=== PATIENT | female | born 1985 | race Caucasian/White ===

== ENCOUNTER 2017-08-13 13:22 | Emergency (ER) | payer OTHER ==
[~2017-08-13] VITALS: Ht 175.3 cm; Wt 65.0 kg
[~2017-08-13 13:22] MED LIST: HYDR-3533 PO; LEVO.1 PO
[2017-08-13 13:24] VITALS: BP 125/73; PULSE 87; RESP 16; TEMP 98.7; O2SAT 100
[2017-08-13] MEDS ORDERED: SYNT88TA PO (13:56)
--- NOTE | 2017-08-13 14:12 | PD ---
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 Says that the chest pain is located in the left midsternal breast area without radiation. Says nothing seems to make the pain better or worse. She describes it as sharp and tight, mild to moderate in severity. Says this morning she had associated shortness of breath and nausea but this has since resolved. Says she took Motrin yesterday but did not provide relief. Says yesterday the pain was constant and persisted throughout today's that he she decided to come in today for evaluation. She says that she has a history of this chest pain previously that lasted several weeks before resolving spontaneously. Says she saw a winding inspector and tester 2-3 years ago where she had an echocardiogram and stress test. There were both normal according to the patient. Says she was previously diagnosed with GERD. She does not use tobacco products. Says she drinks alcohol occasionally. Family history is positive for her mother who has LVH. Her grandfather had an PA and she has several uncles who of heart attacks in their 40s. She denies recent travel , history of cancer, IV drug use, history of DVT/PE, recent surgery. She denies fevers or chills. PFSH Past Medical History Cardiovascular Problems: Yes (heart murmur) Thyroid Disease: Yes (hypo) Influenza Vaccination: Yes ?: Not LMP: 2 WEEKS Past Surgical History Surgical History: No Previous Surgery Social History Alcohol Use: Yes (DAILY) Tobacco Use: No Substance Use: No Allergies-Medications (Allergen,Severity, Reaction): Coded Allergies: No Known Allergies (Verified Adverse Reaction, Unknown, 08/13/17) Reported Meds & Prescriptions Reported Meds & Active Scripts Active Ranitidine (Ranitidine HCl) 150 Mg Tab 150 Mg PO BID 7 Days Reported Synthroid (Levothyroxine Sodium) 88 Mcg Tab 88 Mcg PO DAILY Review of Systems Except as stated in HPI: all other systems reviewed are Neg Physical Exam Narrative GENERAL: Well-developed, well-nourished no apparent distress SKIN: Focused skin assessment warm/dry. HEAD: Atraumatic. Normocephalic. EYES: Pupils equal and round. No scleral icterus. No injection or drainage. ENT: No nasal bleeding or discharge. Mucous membranes pink and moist. NECK: Trachea midline. No JVD. No lymphadenopathy CARDIOVASCULAR: Regular rate and rhythm. No murmur appreciated. RESPIRATORY: No accessory muscle use. Clear to auscultation. Breath sounds equal bilaterally. No Tenderness to palpation of the chest wall MUSCULOSKELETAL: No obvious deformities. No clubbing. No cyanosis. No edema. [place] sign negative. [place] sign negative. No tenderness palpation of the chest wall NEUROLOGICAL: Awake and alert. No obvious cranial nerve deficits. Motor grossly within normal limits. Normal speech. PSYCHIATRIC: Appropriate mood and affect; insight and judgment normal. Data Data Last Documented VS Vital Signs Date Time Temp Pulse Resp B/P (MAP) Pulse Ox O2 Delivery O2 Flow Rate FiO2 08/13/17 15:33 96 Room Air 08/13/17 13:24 98.7 87 16 125/73 (90) Orders Orders Electrocardiogram (08/13/17 14:04) Ckmb (Isoenzyme) Profile (08/13/17 14:04) Complete Blood Count With Diff (08/13/17 14:04) Comprehensive Metabolic Panel (08/13/17 14:04) D-Dimer (08/13/17 14:04) Magnesium (Mg) (08/13/17 14:04) Prothrombin Time / Inr (Pt) (08/13/17 14:04) Act Partial Throm Time (Ptt) (08/13/17 14:04) Troponin I (08/13/17 14:04) Lipase (08/13/17 14:04) Chest, Single Ap (08/13/17 14:04) Ecg Monitoring (08/13/17 14:04) Iv Access Insert/Monitor (08/13/17 14:04) Oximetry (08/13/17 14:04) Aspirin Chew (Aspirin Chew) (08/13/17 14:15) Sodium Chloride 0.9% Flush (Ns Flush) (08/13/17 14:15) Sodium Chlor 0.9% 1000 Ml Inj (Ns 1000 M (08/13/17 14:15) Thyroid Stimulating Hormone (08/13/17 14:11) Urinalysis - C+S If Indicated (08/13/17 14:44) Ed Urine Pregnancytest Poc (08/13/17 14:44) Ed Discharge Order (08/13/17 15:50) Labs Laboratory Tests Test 08/13/17 14:22 08/13/17 15:25 White Blood Count 10.2 TH/MM3 Red Blood Count 4.68 MIL/MM3 Hemoglobin 12.8 GM/DL Hematocrit 38.4 % Mean Corpuscular Volume 82.1 FL Mean Corpuscular Hemoglobin 27.4 PG Mean Corpuscular Hemoglobin Concent 33.4 % Red Cell Distribution Width 16.3 % Platelet Count 364 TH/MM3 Mean Platelet Volume 8.7 FL Neutrophils (%) (Auto) 58.5 % Lymphocytes (%) (Auto) 27.6 % Monocytes (%) (Auto) 9.9 % Eosinophils (%) (Auto) 2.7 % Basophils (%) (Auto) 1.3 % Neutrophils # (Auto) 6.0 TH/MM3 Lymphocytes # (Auto) 2.8 TH/MM3 Monocytes # (Auto) 1.0 TH/MM3 Eosinophils # (Auto) 0.3 TH/MM3 Basophils # (Auto) 0.1 TH/MM3 CBC Comment DIFF FINAL Differential Comment Prothrombin Time 11.4 SEC Prothromb Time International Ratio 1.1 RATIO Activated Partial Thromboplast Time 27.5 SEC D-Dimer Quantitative (PE/DVT) LESS THAN 0.19 MG/L FEU Blood Urea Nitrogen 18 MG/DL Creatinine 0.87 MG/DL Random Glucose 97 MG/DL Total Protein 7.3 GM/DL Albumin 3.8 GM/DL Calcium Level 8.7 MG/DL Magnesium Level 2.2 MG/DL Alkaline Phosphatase 38 U/L Aspartate Amino Transf (AST/SGOT) 15 U/L Alanine Aminotransferase (ALT/SGPT) 16 U/L Total Bilirubin 0.3 MG/DL Sodium Level 141 MEQ/L Potassium Level 3.9 MEQ/L Chloride Level 108 MEQ/L Carbon Dioxide Level 25.2 MEQ/L Anion Gap 8 MEQ/L Estimat Glomerular Filtration Rate 76 ML/MIN Total Creatine Kinase 74 U/L Troponin I LESS THAN 0.02 NG/ML Lipase 116 U/L Thyroid Stimulating Hormone 3rd Gen 1.740 uIU/ML Urine Color YELLOW Urine Turbidity CLEAR Urine pH 5.5 Urine Specific [place] 1.020 Urine Protein NEG mg/dL Urine Glucose (UA) NEG mg/dL Urine Ketones NEG mg/dL Urine Occult Blood MOD Urine Nitrite NEG Urine Bilirubin NEG Urine Urobilinogen 0.2 MG/DL Urine Leukocyte Esterase TRACE Urine Squamous Epithelial Cells 0-5 /hpf Microscopic Urinalysis Comment CULT NOT INDICATED MDM Medical Decision Making Medical Screen Exam Complete: Yes Emergency Medical Condition: Yes Differential Diagnosis Atypical chest pain, pulmonary embolism, SVT, ACS, angina Narrative Course 31-year-old female presents emergency department evaluation of chest pain that has been intermittent for several weeks. PERC negative. D-dimer ordered for evaluation. Labs and imaging studies ordered. Aspirin administered. Negative [id number] test. Urinalysis noncontributory. Chest x-ray without acute process. Cardiac enzymes negative. TSH 1.740. D-dimer negative. I discussed this case my attending. I do not believe that this is cardiac related or requires any further workup or in the emergency department today. Does not believe she requires admission patient is a otherwise young 31-year- old female in no acute distress. She has a history of Harry's disease and this may be the cause or concerning factor. She is advised to follow-up with a winding inspector and tester and her primary care physician for further treatment and evaluation. She will be prescribed ranitidine as she was previously diagnosed with GERD. Diagnosis Primary Impression: Chest pain Qualified Codes: R07.89 - Other chest pain Referrals: General Intern Primary Care Physician Additional Instructions: Follow-up the primary care physician and winding inspector and tester as discussed. Scripts Ranitidine (Ranitidine) 150 Mg Tab 150 MG PO BID for 7 Days, #14 TAB 0 Refills Prov: Aram Bailey MD 08/13/17 Disposition: 01 DISCHARGE HOME Condition: Stable Eloina Srivastava Aug 13, 2017 14:12
[2017-08-13] MEDS ORDERED: ASPIRIN 81 MG CHEW TAB PO ONE (14:15)
[2017-08-13] MEDS ORDERED: SODIUM CHLOR 0.9% 1000 ML INJ 1,000 ML IV ONE (14:15)
[2017-08-13] MEDS ORDERED: SODIUM CHLORIDE 0.9% FLUSH 10 ML FLUSH IVF PRN (14:15)
[2017-08-13 14:29] LABS: BASOPHIL # 0.1 TH/MM3 (0-0.2); BASOPHIL % 1.3 % (0.0-2.0); EOSINOPHIL # 0.3 TH/MM3 (0-0.4); EOSINOPHIL % 2.7 % (0.0-4.0); HEMATOCRIT 38.4 % (35.0-46.0); HEMOGLOBIN 12.8 GM/DL (11.6-15.3); LYMPH % 27.6 % (9.0-44.0); LYMPHOCYTE # 2.8 TH/MM3 (1.0-4.8); MEAN CELL VOLUME 82.1 FL (80.0-100.0); MEAN CORPUSCULAR HEMOGLOBIN 27.4 PG (27.0-34.0); MEAN CORPUSCULAR HGB CONC 33.4 % (32.0-36.0); MEAN PLATELET VOLUME 8.7 FL (7.0-11.0); MONO % 9.9 % (0.0-8.0); NEUT % 58.5 % (16.0-70.0); PLATELET COUNT 364 TH/MM3 (150-450); RED BLOOD COUNT 4.68 MIL/MM3 (4.00-5.30); RED CELL DISTRIBUTION WIDTH 16.3 % (11.6-17.2); WHITE BLOOD COUNT 10.2 TH/MM3 (4.0-11.0)
[2017-08-13 14:44] LABS: CHLORIDE 108 MEQ/L (98-107); SODIUM (NA) 141 MEQ/L (136-145)
[2017-08-13 14:48] LABS: CALCIUM 8.7 MG/DL (8.5-10.1)
[2017-08-13 14:49] LABS: ALBUMIN 3.8 GM/DL (3.4-5.0); BICARBONATE 25.2 MEQ/L (21.0-32.0); BLOOD UREA NITROGEN 18 MG/DL (7-18); GLUCOSE,RANDOM 97 MG/DL (74-106); MAGNESIUM 2.2 MG/DL (1.5-2.5)
[2017-08-13 14:52] LABS: ALT (GPT) 16 U/L (10-53); AST (GOT) 15 U/L (15-37); CREATININE 0.87 MG/DL (0.50-1.00); GLOMERULAR FILTRATION RATE 76 ML/MIN (>89)
[2017-08-13 14:53] LABS: TOTAL BILIRUBIN ADULT 0.3 MG/DL (0.2-1.0); TOTAL PROTEIN 7.3 GM/DL (6.4-8.2)
[2017-08-13 14:55] LABS: ALKALINE PHOSPHATASE 38 U/L (45-117)
[2017-08-13 14:57] LABS: TROPONIN I LESS THAN 0.02 NG/ML (0.02-0.05)
--- NOTE | 2017-08-13 15:03 | RADRPT ---
EXAM DATE: 08/13/2017 2:32 PM EDT AGE/SEX: 31 years / Female INDICATIONS: Chest pain. CLINICAL DATA: This is the patient's initial encounter. Patient reports that signs and symptoms have been present for 1 day and indicates a pain score of 3/10. MEDICAL/SURGICAL HISTORY: None. None. COMPARISON: No prior exams available for comparison. FINDINGS: A single AP view of the chest demonstrates the lungs to be symmetrically aerated without evidence of mass, infiltrate or effusion. The cardiomediastinal contours are unremarkable. Osseous structures a re intact. CONCLUSION: Negative for an acute process. Electronically signed by: Bentley Suarez MD 08/13/2017 3:02 PM EDT
[2017-08-13 15:11] LABS: INTERNATIONAL NORMALIZED RATIO 1.1 RATIO; PROTHROMBIN TIME - PATIENT 11.4 SEC (9.8-11.6)
[2017-08-13 15:17] LABS: D-DIMER LESS THAN 0.19 MG/L FEU (0.00-0.50)
[2017-08-13 15:33] VITALS: O2SAT 96
[2017-08-13] MEDS ORDERED: RANI150T PO (15:37)
[2017-08-13 15:43] LABS: BILIRUBIN, URINE NEG (NEG); BLOOD, URINE MOD (NEG); GLUCOSE,URINE NEG (NEG); KETONE, URINE NEG (NEG); NITRITE,URINE NEG (NEG); PH, URINE 5.5 (5.0-8.5); URINE COLOR YELLOW (YELLW/STRAW); URINE LEUKOCYTE ESTERASE TRACE (NEG)
[2017-08-13 15:48] LABS: SQUAMOUS EPITHELIAL CELL URINE 0-5 /hpf (0-5)
--- NOTE | 2017-08-13 15:49 | PD ---
Data Data Last Documented VS Vital Signs Date Time Temp Pulse Resp B/P (MAP) Pulse Ox O2 Delivery O2 Flow Rate FiO2 08/13/17 15:33 96 Room Air 08/13/17 13:24 98.7 87 16 125/73 (90) Orders Orders Electrocardiogram (08/13/17 14:04) Ckmb (Isoenzyme) Profile (08/13/17 14:04) Complete Blood Count With Diff (08/13/17 14:04) Comprehensive Metabolic Panel (08/13/17 14:04) D-Dimer (08/13/17 14:04) Magnesium (Mg) (08/13/17 14:04) Prothrombin Time / Inr (Pt) (08/13/17 14:04) Act Partial Throm Time (Ptt) (08/13/17 14:04) Troponin I (08/13/17 14:04) Lipase (08/13/17 14:04) Chest, Single Ap (08/13/17 14:04) Ecg Monitoring (08/13/17 14:04) Iv Access Insert/Monitor (08/13/17 14:04) Oximetry (08/13/17 14:04) Aspirin Chew (Aspirin Chew) (08/13/17 14:15) Sodium Chloride 0.9% Flush (Ns Flush) (08/13/17 14:15) Sodium Chlor 0.9% 1000 Ml Inj (Ns 1000 M (08/13/17 14:15) Thyroid Stimulating Hormone (08/13/17 14:11) Urinalysis - C+S If Indicated (08/13/17 14:44) Ed Urine Pregnancytest Poc (08/13/17 14:44) Labs Laboratory Tests Test 08/13/17 14:22 08/13/17 15:25 White Blood Count 10.2 TH/MM3 Red Blood Count 4.68 MIL/MM3 Hemoglobin 12.8 GM/DL Hematocrit 38.4 % Mean Corpuscular Volume 82.1 FL Mean Corpuscular Hemoglobin 27.4 PG Mean Corpuscular Hemoglobin Concent 33.4 % Red Cell Distribution Width 16.3 % Platelet Count 364 TH/MM3 Mean Platelet Volume 8.7 FL Neutrophils (%) (Auto) 58.5 % Lymphocytes (%) (Auto) 27.6 % Monocytes (%) (Auto) 9.9 % Eosinophils (%) (Auto) 2.7 % Basophils (%) (Auto) 1.3 % Neutrophils # (Auto) 6.0 TH/MM3 Lymphocytes # (Auto) 2.8 TH/MM3 Monocytes # (Auto) 1.0 TH/MM3 Eosinophils # (Auto) 0.3 TH/MM3 Basophils # (Auto) 0.1 TH/MM3 CBC Comment DIFF FINAL Differential Comment Prothrombin Time 11.4 SEC Prothromb Time International Ratio 1.1 RATIO Activated Partial Thromboplast Time 27.5 SEC D-Dimer Quantitative (PE/DVT) LESS THAN 0.19 MG/L FEU Blood Urea Nitrogen 18 MG/DL Creatinine 0.87 MG/DL Random Glucose 97 MG/DL Total Protein 7.3 GM/DL Albumin 3.8 GM/DL Calcium Level 8.7 MG/DL Magnesium Level 2.2 MG/DL Alkaline Phosphatase 38 U/L Aspartate Amino Transf (AST/SGOT) 15 U/L Alanine Aminotransferase (ALT/SGPT) 16 U/L Total Bilirubin 0.3 MG/DL Sodium Level 141 MEQ/L Potassium Level 3.9 MEQ/L Chloride Level 108 MEQ/L Carbon Dioxide Level 25.2 MEQ/L Anion Gap 8 MEQ/L Estimat Glomerular Filtration Rate 76 ML/MIN Total Creatine Kinase 74 U/L Troponin I LESS THAN 0.02 NG/ML Lipase 116 U/L Thyroid Stimulating Hormone 3rd Gen 1.740 uIU/ML Urine Color YELLOW Urine Turbidity CLEAR Urine pH 5.5 Urine Specific [place] 1.020 Urine Protein NEG mg/dL Urine Glucose (UA) NEG mg/dL Urine Ketones NEG mg/dL Urine Occult Blood MOD Urine Nitrite NEG Urine Bilirubin NEG Urine Urobilinogen 0.2 MG/DL Urine Leukocyte Esterase [facility] Supervised Visit with JOJO: Yes Narrative Course The history, exam, and medical decision-making in the associated mid-level provider note were completed with my assistance. I reviewed and agree with the findings presented. I attest that I had a [id number] encounter with the patient on the same day, and personally performed and documented my assessment and findings in the medical record. *My assessment and Findings: 31-year-old woman presents to the emergency department complaining of intermittent left-sided chest pain ongoing for the past several days to weeks. She has had similar symptoms in the past. She had previous extensive workup by cardiology that did not reveal any cardiac issues. She is having pain at that time as well. He thought it may be GERD. She does have some family history of heart disease. Symptoms are not exertional in nature. Not associated with with diet or certain foods. She looks well. EKG is normal. Labs including d- dimer on normal/negative. Etiology is unclear. Statistically she has had GERD before and seems possible although there is no clearly localizing history or physical elements. Nonetheless it is worth a trial of ranitidine. She agrees to return for any worsening symptoms. Diagnosis Primary Impression: Chest pain Qualified Codes: R07.89 - Other chest pain Referrals: Plant Clerk Primary Care Physician Additional Instruction: Follow-up the primary care physician and farmer diversified crops as discussed. Scripts Ranitidine (Ranitidine) 150 Mg Tab 150 MG PO BID for 7 Days, #14 TAB 0 Refills Prov: Aram Bailey MD 08/13/17 Disposition: 01 DISCHARGE HOME Condition: Stable Aram Bailey MD Aug 13, 2017 15:49
--- NOTE | 2017-08-14 15:16 | EKG ---
Date Performed: 08/13/2017 Time Performed: 13:30:52 PTAGE: 31 years EKG: Sinus rhythm NORMAL ECG PREVIOUS TRACING : 02/12/2011 04.39.20 Since previous tracing, no significant change noted DOCTOR: Roman Keen Interpretating Date/Time 08/14/2017 15:13:24
== END 2017-08-13 16:14 | disposition home or self-care (01) ==
LOC: PHED 13:22 → PHEFT 16:14
DX: R07.89 Other chest pain (principal); E06.3 Autoimmune thyroiditis; K21.9 Gastro-esophageal reflux disease without esophagitis; Z82.49 Family history of ischemic heart disease and other diseases of the circulatory system; Z79.899 Other long term (current) drug therapy
CPT/HCPCS: 71045; 80053; 81001; 82550; 83690; 83735; 84443; 84484; 84703; 85025; 85379; 85610; 85730; 93005; 96360; 99285; J7030